=== PATIENT | male | born 1990 | race Caucasian/White ===

== ENCOUNTER 2024-03-26 13:13 | Emergency (ER) | payer SELFPAY ==
[~2024-03-26] VITALS: Ht 172.7 cm; Wt 99.8 kg
[2024-03-26] MEDS ORDERED: Triamcinolone Inj Susp 40 MG / ML 1ML Vial IM ONE (14:00)
== END 2024-03-26 14:17 | disposition home or self-care (01) ==
LOC: ER 13:13
DX: L23.7 Allergic contact dermatitis due to plants, except food (principal)
CPT/HCPCS: 96372; 99282-25; J3301